=== PATIENT | male | born 1945 | race Caucasian/White ===

== ENCOUNTER 2017-08-05 03:33 | Emergency (ER) | payer OTHER ==
[2017-08-05] MEDS ORDERED: NS(*) 0.9% 1000 ML BAG 1,000 ML IV ONE (03:43)
--- NOTE | 2017-08-05 03:43 | ER Report ---
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 Patient was brought in by EMS. He is a bruise by his left eye and a cut on his right arm. He has bite dempsey on his tongue. Patient states he had a seizure one month ago. He states he was worked up for it. Patient denies any significant past medical history except for electromagnetic frequency weapon exposure in the for 4 years. She denies drugs or alcohol use. Patient takes no medications. REVIEW OF SYSTEMS: Respiratory: No cough, no dyspnea. Cardiovascular: No chest pain, no palpitations. Gastrointestinal: No vomiting, no abdominal pain. Musculoskeletal: No back pain. Allergies: Coded Allergies: No Known Drug Allergies (Unverified , 08/05/17) Home Meds Active Scripts Levetiracetam (LEVETIRACETAM) 500 Mg Tablet, 500 MG PO QDAY for prevention of seizures, #60 Prov:ERIC ZULETA DO 08/05/17 Reviewed Nurses Notes: Yes Old Medical Records Reviewed: Yes Constitutional Vital Sign - Last 24 Hours 08/05/17 08/05/17 03:37 03:47 Pulse 82 Resp 20 B/P (MAP) 135/90 Pulse Ox 91 O2 Delivery Room Air O2 Flow Rate 2.0 Physical Exam General Appearance: The patient is alert, has no immediate need for airway protection and no signs of toxicity. Alert and oriented 3. Vital signs stable , afebrile, pulse ox normal Eyes: Pupils equal and round no pallor or injection. Left lower eyelid with bruising and ecchymosis ENT, Mouth: Mucous membranes are moist. Tongue with bite dempsey on the distal tip Respiratory: There are no retractions, lungs are clear to auscultation. Cardiovascular: Regular rate and rhythm. Gastrointestinal: Abdomen is soft and non tender, no masses, bowel sounds normal. Neurological: Alert and oriented 3, cranial nerves II through XII intact motor 5/5 belt maker, sensory intact to light touch 4 Skin: Warm and dry, no rashes. Musculoskeletal: Neck is supple non tender. No tenderness in the midline Extremities are nontender, nonswollen and have full range of motion. There is a skin tear on the right forearm DIFFERENTIAL DIAGNOSIS: After history and physical exam differential diagnosis was considered for a seizure including but not limited to electrolyte abnormality, alcohol withdrawal, medication noncompliance, head injury, and breakthrough seizure. Medical Decision Making Data Points Result Diagram: 08/05/17 0325 08/05/17 0325 Laboratory Hematology Test 08/05/17 03:25 08/05/17 03:43 08/05/17 04:44 Red Blood Count 5.64 M/uL (4.00-5.60) Mean Corpuscular Volume 89.6 fL (80.0-96.0) Mean Corpuscular Hemoglobin 30.6 pg (26.0-33.0) Mean Corpuscular Hemoglobin Concent 34.2 g/dL (32.0-36.0) Red Cell Distribution Width 13.3 % (11.5-14.5) Mean Platelet Volume 8.6 fL (7.2-11.1) Neutrophils (%) (Auto) 85.1 % (39.4-72.5) Lymphocytes (%) (Auto) 7.2 % (17.6-49.6) Monocytes (%) (Auto) 7.1 % (4.1-12.4) Eosinophils (%) (Auto) 0.3 % (0.4-6.7) Basophils (%) (Auto) 0.3 % (0.3-1.4) Nucleated RBC Relative Count (auto) 0.0 /100WBC Neutrophils # (Auto) 13.7 K/uL (2.0-7.4) Lymphocytes # (Auto) 1.2 K/uL (1.3-3.6) Monocytes # (Auto) 1.1 K/uL (0.3-1.0) Eosinophils # (Auto) 0.0 K/uL (0.0-0.5) Basophils # (Auto) 0.0 K/uL (0.0-0.1) Nucleated RBC Absolute Count (auto) 0.00 K/uL Sodium Level 144 mmol/L (137-145) Potassium Level 3.5 mmol/L (3.5-5.0) Chloride Level 102 mmol/L (98-107) Carbon Dioxide Level 27 mmol/L (22-30) Blood Urea Nitrogen 18 mg/dl (9-21) Creatinine 1.30 mg/dl (0.66-1.25) Glomerular Filtration Rate Calc 54.1 Random Glucose 135 mg/dl (75-110) Calcium Level 9.5 mg/dl (8.4-10.2) Magnesium Level 2.6 mg/dl (1.7-2.2) Total Bilirubin 0.8 mg/dl (0.2-1.3) Aspartate Amino Transf (AST/SGOT) 31 U/L (0-35) Alanine Aminotransferase (ALT/SGPT) 28 U/L (0-56) Alkaline Phosphatase 102 U/L (0-126) Total Creatine Kinase 185 U/L (55-170) Troponin I < 0.012 ng/ml Total Protein 7.5 gm/dl (6.3-8.2) Albumin 4.3 g/dl (3.5-5.0) Whole Blood Glucose 123 mg/DL (75-110) Urine Opiates Screen Negative Urine Barbiturates Screen Negative Ur Tricyclic Antidepressants Screen Positive Urine Phencyclidine Screen Negative Urine Amphetamines Screen Negative Urine Benzodiazepines Screen Negative Urine Cocaine Screen Negative Urine Cannabinoids Screen Negative Chemistry Test 08/05/17 03:25 08/05/17 03:43 08/05/17 04:44 White Blood Count 16.0 k/uL (4.5-11.0) Red Blood Count 5.64 M/uL (4.00-5.60) Hemoglobin 17.3 g/dL (14.0-18.0) Hematocrit 50.5 % (42.0-52.0) Mean Corpuscular Volume 89.6 fL (80.0-96.0) Mean Corpuscular Hemoglobin 30.6 pg (26.0-33.0) Mean Corpuscular Hemoglobin Concent 34.2 g/dL (32.0-36.0) Red Cell Distribution Width 13.3 % (11.5-14.5) Platelet Count 221 K/uL (150-450) Mean Platelet Volume 8.6 fL (7.2-11.1) Neutrophils (%) (Auto) 85.1 % (39.4-72.5) Lymphocytes (%) (Auto) 7.2 % (17.6-49.6) Monocytes (%) (Auto) 7.1 % (4.1-12.4) Eosinophils (%) (Auto) 0.3 % (0.4-6.7) Basophils (%) (Auto) 0.3 % (0.3-1.4) Nucleated RBC Relative Count (auto) 0.0 /100WBC Neutrophils # (Auto) 13.7 K/uL (2.0-7.4) Lymphocytes # (Auto) 1.2 K/uL (1.3-3.6) Monocytes # (Auto) 1.1 K/uL (0.3-1.0) Eosinophils # (Auto) 0.0 K/uL (0.0-0.5) Basophils # (Auto) 0.0 K/uL (0.0-0.1) Nucleated RBC Absolute Count (auto) 0.00 K/uL Glomerular Filtration Rate Calc 54.1 Calcium Level 9.5 mg/dl (8.4-10.2) Magnesium Level 2.6 mg/dl (1.7-2.2) Total Bilirubin 0.8 mg/dl (0.2-1.3) Aspartate Amino Transf (AST/SGOT) 31 U/L (0-35) Alanine Aminotransferase (ALT/SGPT) 28 U/L (0-56) Alkaline Phosphatase 102 U/L (0-126) Total Creatine Kinase 185 U/L (55-170) Troponin I < 0.012 ng/ml Total Protein 7.5 gm/dl (6.3-8.2) Albumin 4.3 g/dl (3.5-5.0) Whole Blood Glucose 123 mg/DL (75-110) Urine Opiates Screen Negative Urine Barbiturates Screen Negative Ur Tricyclic Antidepressants Screen Positive Urine Phencyclidine Screen Negative Urine Amphetamines Screen Negative Urine Benzodiazepines Screen Negative Urine Cocaine Screen Negative Urine Cannabinoids Screen Negative Toxicology Test 08/05/17 04:44 Urine Opiates Screen Negative Urine Barbiturates Screen Negative Ur Tricyclic Antidepressants Screen Positive Urine Phencyclidine Screen Negative Urine Amphetamines Screen Negative Urine Benzodiazepines Screen Negative Urine Cocaine Screen Negative Urine Cannabinoids Screen Negative EKG/Imaging Imaging Results: CT scan of the head was obtained. The results of the study are HEAD CT: Indication: Seizure disorder. Technique: Contiguous axial sections were obtained from the base to the vertex without contrast enhancement. One of the following dose optimization techniques was utilized in the performance of this exam: Automated exposure control; adjustment of the mA and/ or kV according to the patient's size; or use of an iterative reconstruction technique. Specific details can be referenced in the facility's radiology CT exam operational policy. Comparison: None. Findings: There is no evidence of intra-axial or extra-axial hemorrhage. There is a small focal area of hypoattenuation in the left periventricular white matter, compatible with chronic ischemia. No other focal areas of decreased or increased attenuation are identified. There is no evidence of mass, edema, or shift of the midline structures. The size, shape, and configuration of the ventricular system are normal. The skeletal structures are intact and unremarkable. The visualized paranasal sinuses and mastoid air cells are clear. Impression: No evidence of hemorrhage, mass effect, or other acute process. The study was read by the radiologist. I viewed the images myself on the PACS system. ED Course/Re-evaluation Clinical Indication for ER IV: Hydration, IV Access ED Course Patient admitted to an examination room. H&P was done. The differential diagnoses was considered. On clinical examination. Patient with a nonfocal neurologic examination. He has clinical findings, just above a seizure. Patient was evaluated 4 weeks ago for seizure he states he had a negative head CT and diagnostic studies. He denies substance use or abuse. Patient was not started on anticonvulsants. Patient has a diagnostic evaluation performed here which is unremarkable. Patient be started on Keppra for seizure prevention. He 's advised to follow-up with his primary care or neurologist back in [place]. Patient was given a tetanus booster to update his status. Decision to Disposition Date: August 05, 2017 Decision to Disposition Time: 04:29 Depart Departure Latest Vital Signs Vital Signs Date Time Temp Pulse Resp B/P (MAP) Pulse Ox O2 Delivery O2 Flow Rate FiO2 08/05/17 03:47 2.0 08/05/17 03:37 82 20 135/90 91 Room Air Impression: Primary Impression: Seizure Condition: Improved Disposition: HOME OR SELF-CARE New Scripts Levetiracetam (LEVETIRACETAM) 500 Mg Tablet 500 MG PO QDAY for prevention of seizures, #60 Prov: ERIC ZULETA DO 08/05/17 Patient Instructions: New-Onset Seizure in Adults (ED) Additional Instructions: Take your seizure medicine twice daily Follow-up with your primary care doctor upon returning home You will also need to follow up with a neurologist ERIC ZULETA DO August 05, 2017 03:42
[2017-08-05 03:59] LABS: PLATELET COUNT, AUTOMATED 221 K/uL (150-450)
--- NOTE | 2017-08-05 04:36 | RADIOLOGY IMAGING REPORT ---
[place] [facility] [place] NAME: Lamonte Méndez : 1945 MR: [id number] V: [id number] EXAM DATE: ORDERING PHYSICIAN: ERIC ZULETA TECHNOLOGIST: [place] [facility] [place] M[place] : 1945 Visit/Account:[id number] Date of Sevice: 08/05/[address]: Indication: Seizure disorder. Technique: Contiguous axial sections were obtained from the base to the vertex without contrast enhan cement. One of the following dose optimization techniques was utilized in the performance of this exam: Autom ated exposure control; adjustment of the mA and/or kV according to the patient's size; or use of an i terative reconstruction technique. Specific details can be referenced in the facility's radiology CT exam operational policy. Comparison: None. Findings: There is no evidence of intra-axial or extra-axial hemorrhage. There is a small focal area of hypoattenuation in the left periventricular white matter, compatible with chronic ischemia. No oth er focal areas of decreased or increased attenuation are identified. There is no evidence of mass, ed ibis, or shift of the midline structures. The size, shape, and configuration of the ventricular system are normal. The skeletal structures are intact and unremarkable. The visualized paranasal sinuses an d mastoid air cells are clear. Impression: No evidence of hemorrhage, mass effect, or other acute process. Report Dictated By: Naveed Wilcox MD at 08/05/2017 4:25 AM Report E-Signed By: Naveed Wilcox MD at 08/05/2017 4:31 AM [id number]
[2017-08-05] MEDS ORDERED: LEVE500T73 PO (05:03)
[2017-08-05] MEDS ORDERED: DIPHTH/TETANUS/ACEL. PERTUSSIS IM ONLY ONE (05:05)
[2017-08-05] MEDS ORDERED: levETIRAcetam 500 MG TAB PO ONE (05:05)
[2017-08-05 05:30] VITALS: BP 150/82
== END 2017-08-05 05:45 | disposition home or self-care (01) ==
LOC: ER 03:42
DX: R56.9 Unspecified convulsions (principal)
CPT/HCPCS: 36416; 70450; 80305; 82550; 82948; 83735; 84484; 85025; 90471; 90715; 96360; 96361; 99284; J7030; 82040; 82247; 82310; 82374; 82435; 82565; 82947; 84075; 84132; 84155; 84295; 84450; 84460; 84520

== ENCOUNTER → 2017-08-05 | Outpatient (CLI) | payer OTHER ==
[~2017-08-05] MED LIST: LEVE500T73 PO
== END ==
LOC: AMB 03:12
PROVIDERS: ATTEND Nurse Practitioner
DX: R42 Dizziness and giddiness (principal); R11.2 Nausea with vomiting, unspecified
CPT/HCPCS: A0425; A0427